=== PATIENT | female | born 2000 | race Two or more races ===

== ENCOUNTER 2024-08-26 10:24 | Outpatient (CLI) | payer BC, SELFPAY ==
--- NOTE | 2024-08-26 10:25 | US_ITS ---
PROCEDURE INFORMATION: Exam: US Soft Tissue Head and Neck, Thyroid Exam date and time: 08/26/2024 10:39 AM Age: 23 years old Clinical indication: Condition or disease; Thyroid disorder; Other: Hypothyroidism; Additional info: History of hypothyroidism TECHNIQUE: Imaging protocol: Real-time ultrasound scan of the neck with image documentation. Exam focused on the thyroid. COMPARISON: US THYROID 08/26/2024 10:39 AM FINDINGS: Right thyroid lobe: Right lobe of the thyroid 5.4 x 1.4 x 1.8 cm total volume 7.4 cc Left thyroid lobe: Left ovary 4.8 x 1.3 x 1.7 cm total volume 5.6 cc Isthmus: Isthmus 5.6 mm Other findings: The thyroid parenchyma is heterogeneous but no discrete nodule. IMPRESSION: The thyroid parenchyma is heterogeneous but no discrete nodule.
[2024-08-26 13:05] LABS: Thyroid Stimulating Hormone 7.51 uIU/mL (0.465-4.68)
== END 2024-08-26 23:59 | disposition home or self-care (01) ==
LOC: RAD 10:25
PROVIDERS: PCP Nurse Practitioner; Visit Provider Nurse Practitioner
DX: E03.9 Hypothyroidism, unspecified (principal)
CPT/HCPCS: 36415; 76536; 84439; 84443